=== PATIENT | female | born 1975 | race Caucasian/White ===

== ENCOUNTER → 2017-08-18 | Outpatient (CLI) | payer MEDICAID | END | disposition home or self-care (01) | LOC: CARD 12:26 | PROVIDERS: ATTEND Nurse Practitioner Family | DX: R56.9 Unspecified convulsions (principal) | CPT/HCPCS: 95819 ==

== ENCOUNTER 2017-10-24 14:08 | Emergency (ER) | payer BC, MEDICAID ==
[2017-10-24] MEDS ORDERED: GABA300C10 PO (15:09)
[2017-10-24] MEDS ORDERED: CARB200T PO (15:09)
[2017-10-24] MEDS ORDERED: ZOLP10TA PO (15:09)
[2017-10-24] MEDS ORDERED: TRAZ150T62 PO (15:09)
[2017-10-24] MEDS ORDERED: DULO30CA2 PO (15:09)
[2017-10-24] MEDS ORDERED: KETOROLAC 30 MG/1 ML ONE (15:12)
[2017-10-24] MEDS ORDERED: CYCLOBENZAPRINE 10 MG TABLET ONE (15:19)
[2017-10-24] MEDS ORDERED: KETOROLAC 30 MG/1 ML IM ONE (15:30)
[2017-10-24] MEDS ORDERED: CYCLOBENZAPRINE 10 MG TABLET PO ONE (15:30)
[2017-10-24 16:13] VITALS: BP 144/82
== END 2017-10-24 16:20 | disposition home or self-care (01) ==
LOC: ED 16:14
DX: S30.0XXA Contusion of lower back and pelvis, initial encounter (principal); M46.1 Sacroiliitis, not elsewhere classified; G89.29 Other chronic pain; Z88.1 Allergy status to other antibiotic agents; W01.0XXA Fall on same level from slipping, tripping and stumbling without subsequent striking against object, initial encounter; Y93.89 Activity, other specified; Y92.009 Unspecified place in unspecified non-institutional (private) residence as the place of occurrence of the external cause; Y99.8 Other external cause status
CPT/HCPCS: 72110; 72220; 96372; 99284; J1885